=== PATIENT | male | born 1970 | race Caucasian/White ===

== ENCOUNTER → 2016-05-04 | Outpatient (CLI) | payer MEDICAID ==
[~2016-05-04] MED LIST: CLOT30CR TP; LISI-660 PO; METF500T4 PO; SANTO TP
[2016-05-04 09:10] VITALS: BP 123/82
== END | disposition home or self-care (01) ==
LOC: HBOWC 07:34
PROVIDERS: ATTEND Emergency Medicine
DX: E11.621 Type 2 diabetes mellitus with foot ulcer (principal); L97.521 Non-pressure chronic ulcer of other part of left foot limited to breakdown of skin; I10 Essential (primary) hypertension; B35.1 Tinea unguium; E11.69 Type 2 diabetes mellitus with other specified complication; M86.8X8 Other osteomyelitis, other site
CPT/HCPCS: 97597

== ENCOUNTER → 2016-07-18 | Outpatient (CLI) | payer OTHER ==
[~2016-07-18] VITALS: Ht 162.6 cm; Wt 69.9 kg
[2016-07-18 08:45] VITALS: BP 143/73
== END | disposition home or self-care (01) ==
LOC: HBOWC 08:24
PROVIDERS: ATTEND Emergency Medicine
DX: E11.621 Type 2 diabetes mellitus with foot ulcer (principal); L97.511 Non-pressure chronic ulcer of other part of right foot limited to breakdown of skin; L84 Corns and callosities; M21.6X2 Other acquired deformities of left foot; L85.9 Epidermal thickening, unspecified; B35.1 Tinea unguium; M20.12 Hallux valgus (acquired), left foot; M79.675 Pain in left toe(s)
CPT/HCPCS: 11055